=== PATIENT | female | born 2000 | race Caucasian/White ===

== ENCOUNTER 2022-03-05 02:21 | Day surgery (SDCO) | payer OTHER ==
[~2022-03-05] VITALS: Ht 168.9 cm; Wt 87.3 kg
[2022-03-05 03:14] LABS: BASOPHIL 0.4 % (0-2); EOSINOPHIL 0.6 % (0-5); HCT 38.3 % (37.0-47.0); HGB 12.7 g/dl (12.5-16.0); MCH 30.8 pg (25.0-31.0); MCHC 33.2 g/dL (32.0-36.0); MONOCYTE 8.4 % (0-12); MPV 8.9 fL (6.0-9.5); NEUTROPHIL 72.4 % (41-80); NRBC 0; PLT 468 K/uL (150-400); RBC 4.12 M/uL (4.20-5.40); RDW 13.3 % (11.5-14.0); WBC 13.8 K/uL (4.0-10.5)
[2022-03-05 03:23] LABS: BILIRUBIN - TOTAL 0.2 mg/dL (0.2-1.0); CREATININE 0.78 mg/dL (0.51-0.95); GLOBULIN (CALCULATION) 4.9 g/dL; POTASSIUM 3.9 mmol/L (3.5-5.1); TOTAL PROTEIN 7.9 g/dL (6.4-8.2)
[2022-03-05 04:45] LABS: BILIRUBIN NEGATIVE (NEGATIVE); BLOOD NEGATIVE Ery/uL (NEGATIVE); CLARITY CLEAR (CLEAR); COLOR YELLOW (YELLOW); GLUCOSE (U) NORMAL (NORMAL); LEUKOCYTES NEGATIVE Leu/uL (NEGATIVE); NITRITE NEGATIVE (NEGATIVE); PROTEIN NEGATIVE (NEGATIVE); UROBILINOGEN 0.2 mg/dL (0.2-1.0)
--- NOTE | 2022-03-05 19:38 | NUR ---
SPOKE WITH RADIOLOGY THERE IS A NEW ORDER FOR CT WITH CONTRAST. RADIOLOGY EXPRESSED THE CONCERN OF PATIENT HAVING A CT WITH CONTRAST LESS THAN 24HOURS AGO. SPOKE WITH ALFIE LOPEZ AND HE CONFIRMED CT SHOULD STILL BE DONE. RADIOLOGY STATED SHE MUST BE NPO FOR AT LEAST 4 HOURS SO HE WILL COME BACK AT 2300.
[2022-03-06 12:17] LABS: BASOPHIL 0.2 % (0-2); EOSINOPHIL 1.8 % (0-5); HCT 35.5 % (37.0-47.0); LYMPHOCYTE 20.4 % (15-48); MCH 31.5 pg (25.0-31.0); MCHC 33.8 g/dL (32.0-36.0); MCV 93.2 fL (78.0-100.0); MONOCYTE 8.2 % (0-12); MPV 8.6 fL (6.0-9.5); NEUTROPHIL 69.1 % (41-80); PLT 390 K/uL (150-400); RBC 3.81 M/uL (4.20-5.40); RDW 13.2 % (11.5-14.0); WBC 8.9 K/uL (4.0-10.5)
[2022-03-06] MEDS ORDERED: DULCOLAX5 MG PO (13:05)
[2022-03-06] MEDS ORDERED: AUGMENTIN 500-1 EACH PO (13:05)
[2022-03-06 13:11] LABS: EOSINOPHIL(M) 1 % (0-5); LYMPHOCYTE(M) 21 % (15-48); MONOCYTE(M) 5 % (0-12); NEUTROPHILS(M) 73 % (41-80); NRBC 0; PLATELET ESTIMATE NORMAL; PLATELET MORPHOLOGY NORMAL; TOTAL CELL COUNT 100
== END 2022-03-06 15:05 | disposition home or self-care (01) ==
LOC: FER 02:21 → FMS 11:27
PROVIDERS: Emergency Medicine; Family Medicine; ADMIT Surgery
DX: K59.09 Other constipation (principal); R93.5 Abnormal findings on diagnostic imaging of other abdominal regions, including retroperitoneum; R00.0 Tachycardia, unspecified; R07.89 Other chest pain; R06.02 Shortness of breath; F17.210 Nicotine dependence, cigarettes, uncomplicated; Z20.822 Contact with and (suspected) exposure to COVID-19
CPT/HCPCS: 36415; 71046; 71275; 80053; 81003; 83605; 83690; 85025; 85379; 87040; 93005; G0378; J1885; J2543; J7030; J7120; Q0162; Q9967; U0002